=== PATIENT | female | born 1950 | race Caucasian/White ===

== ENCOUNTER 2016-05-30 11:03 | Day surgery (SDC) | payer MEDICARE, OTHER ==
[~2016-05-30] VITALS: Ht 160 cm; Wt 56.2 kg
[~2016-05-30 11:03] MED LIST: 0.9% Sodium Chloride 1,000 ML IV SCH; CALC600T12 PO; IBUP400T22 PO; Sodium Chloride LOK Flush 10 mL Syringe IV PRN; fentaNYL-PF 50 mCg/mL 2 mL Inj IVPUSH PRN
[2016-05-30 11:44] VITALS: BP 128/82; PULSE 81; RESP 16; O2SAT 97
[2016-05-30] MEDS ORDERED: 0.9% Sodium Chloride 1,000 ML IV ONE (13:26)
--- NOTE | 2016-05-30 13:41 | PCM.ENDEGD ---
EGD Date of Service: May 30, 2016 Physician Dragan Gillis MD Pre Procedure Diagnosis: Reflux Post Procedure Dx & Findings: Esophageal ulcer and duodenal polyp Procedure Esophagogastroduodenoscopy PROCEDURE IN DETAIL: After proper sedation, Olympus video endoscope was inserted into patient's mouth and esophagus was successfully intubated. Scope introduced esophagus. Esophagus showed normal shiny whitish mucosa consistent with squamous cell component. Z line was not intact at 35 cm from the incisors. Several ulcers noted largest being 1 cm clean-based ulcer. Biopsies obtained. Scope further advanced to the stomach. Stomach showed normal shiny mucosa with normal appearing rugae folds without any ulcer mass erosion. Cardia fundus body antrum pylorus were all visualized. Retroflexion was done. Stomach was easily inflated and deflatable using air. Scope further events to the distal duodenum. Duodenum revealed normal villous structures with normal appearing folds without any mass ulcer erosion. There was a 1 mm polyp in the second portion of the duodenum which was removed completely using cold forcep. Impression Esophagitis esophageal ulcers status post biopsy Duodenal polyp status post complete removal Recommendation (Stop all NSAIDS Follow-up with Dr. Muhammad Prielainesec 20 mg once a day Repeat EGD in 8 weeks to make sure there is no underlying Sandoval's esophagus Presedation Assessment Risks and Benefits Informed consent was obtained from the patient after all risks and benefits including but not limited to drug reaction, infection, pain, bleeding, perforation, as well as alternatives were discussed. Patient monitoring Continuous pulse oximetry, cardiac monitoring, blood pressure monitoring, IV access, and oxygen at 2L per nasal cannula. Periprocedural Fentanyl: Fentanyl 125mcg Incrementally Midazolam: Midazolam 6mg Incrementally Complications There were no periprocedural complications identified. Post Procedure Plan Post Procedure Recommendations 1. Restrict activities today. 2. Resume normal activities in the morning. 3. Resume medications. 4. GERD behavioral modification: - Avoid fatty, acidic, spicy, large meals - Do not lie down after meals - Do not eat or drink anything for at least 2 1/2 hours before going to bed at night - Discontinue tobacco and alcohol - Decrease or avoid caffeine - Avoid chocolate and mints - Decrease weight - Avoid aspirin and non steroidal anti-inflammatory agents (NSAID) such as Aleve, Advil, Mobic, Naproxen, Ibuprofen, etc 5. Add proton pump inhibitor. Take 30 minutes before 1st meal of the day. 6. Patient informed of normal post procedure side effects as bloating, drowsiness, blood streaking in the stool 7. If gastric biopsy reveal H.pylori, continue with appropriate treatment 8. If small bowel biopsy reveals celiac, continue with appropriate treatment 9. Please don't hesitate to call me with any questions Dragan Gillis MD May 30, 2016 13:41
[2016-05-30 13:43] VITALS: BP 116/74; PULSE 76; RESP 16; O2SAT 98
--- NOTE | 2016-05-30 13:44 | PCM.ENDCOL ---
Colonoscopy Date of Service: May 30, 2016 Physician Dragan Gillis MD Pre Procedure Diagnosis: Hematochezia Post Procedure Dx & Findings: Ulcerative proctitis Procedure Colonoscopy PROCEDURE IN DETAIL: Prep adequate After unremarkable rectal examination the Olympus video colonoscope was inserted patient's anal canal and was advanced to cecum. Landmarks were identified including the ileocecal valve and appendiceal orifice. Scope was withdrawn systematically. Visualized colonic mucosa showed healthy shiny mucosa with normal healthy-appearing vasculature. In the cecum there was a 3 mm polyp which was removed completely using cold snare. Also in the ascending colon there was a 3 mm polyp which was removed completely using cold snare. These were placed in 1 bottle labeled right colon. At 30 cm from the anal verge, there was a patch of inflammation that was consistent with colitis. However starting at 15 cm patient is a continuous redness ulceration edema decreased vascularity into the rectum. Biopsies are obtained. In the rectum retroflexion was done which showed hemorrhoids. Anal canal was inspected carefully on the way out and hemorrhoids noted. Impression Polyps 2 status post complete removal Ulcerative proctitis Hemorrhoids Recommendation Repeat colonoscopy 5 years Biopsy and if it does come back as ulcerative proctitis, start steroid foam enemas for about a month and also start the patient on Lialda once a day. We visualized this area with a flexible sigmoidoscopy in 3 months. Follow up in GI clinic with Dr. Muhammad. Presedation Assessment Risks and Benefits Informed consent was obtained from the patient after all risks and benefits including but not limited to drug reaction, infection, pain, bleeding, perforation, as well as alternatives were discussed. Patient monitoring Continuous pulse oximetry, cardiac monitoring, blood pressure monitoring, IV access, and oxygen at 2L per nasal cannula. Complications There were no periprocedural complications identified. Post Procedure Plan Post Procedure Recommendations 1. Restrict activities today. 2. Resume normal activities in the morning. 3. Resume medications. 4. Patient informed of normal post procedure side effects as bloating, drowsiness, blood streaking in the stool. 5. average risk CRCS. If colon polyps come back as: -Hyperplastic- can repeat colonoscopy in 10 years -Tubular adenoma- repeat colonoscopy in 5 years -Tubulovillous/villous adenoma- repeat colonoscopy in 3 years -If any dysplasia- return to clinic as soon as possible 6. Please don't hesitate to call me with any questions. Dragan Gillis MD May 30, 2016 13:44
[2016-05-30 13:53] VITALS: BP 106/66; PULSE 68; RESP 16; O2SAT 99
[2016-05-30 14:02] VITALS: BP 101/68; PULSE 72; RESP 16; O2SAT 99
--- NOTE | 2016-05-31 16:14 | PATH ---
SURGICAL PATHOLOGY Attending Physician:Dragan Gillis M.D. CASE STATUS: Signed Out PATIENT NAME: RYANNE GARVEY PID: [id number] : 1950 DATE COLLECTED:05/30/2016 22:02 SPECIMEN: 1: Duodenum, Biopsy 2: Esophagus, Biopsy 3: Colon, Biopsy 4: Rectum, Biopsy CLINICAL HISTORY: 1). DUODENUM POLYP X1 2). ESOPHAGUS BIOPSY 3). RIGHT COLON POLYPS X2 4). RECTAL BIOPSY FINAL DIAGNOSIS: 1. Duodenal Polyp, Biopsy: Duodenal mucosa with no diagnostic abnormality. Negative for active inflammation, sprue, dysplasia, and malignancy. 2. Esophagus, Biopsy: Squamocolumnar junctional mucosa with ulcerative esophagitis. Negative for intestinal metaplasia, dysplasia, and malignancy. No viral cytopathic effect identified. Fungal stain pending; results will be reported as an addendum. 3. Right Colon, Polyps, Biopsies: Portions of tubular adenoma x4; negative for high-grade dysplasia. 4. Rectum, Biopsy: Chronic active colitis, moderate. No dysplasia identified. Please see comment. ICD10: K52.9 NOTE: Part 4: Sections demonstrate superficial portions of colorectal mucosa with marked distortion of crypt architecture and an increase in neutrophils, lymphocytes, and plasma cells within the lamina propria. Cryptitis and crypt abscesses are present. Scattered, rare lymphoid aggregates are present. No definite granulomas, regions of dysplasia, or features of neoplasia are identified. GROSS DESCRIPTION: The specimen is received in four formalin filled containers labeled with the patient's name. 1). The specimen is sublabeled "duodenum polyp x1" and consists of a 0.3 x 0.3 x 0.2 CM a portion of tissue which is entirely submitted in cassettes 1A. 2). The specimen is sublabeled "esophagus" and consists of 3 tiny portions of tissue which aggregate to 0.3 x 0.2 x 0.1 CM. The specimen is entirely submitted in cassette 2A. 3). The specimen is sublabeled "right colon polyps x2" and consists of 4 portions of tissue which aggregate to 0.3 x 0.3 x 0.2 CM. The specimen is entirely submitted in cassette 3A. 4). The specimen is sublabeled "rectal" and consists of 4 portions of tissue which aggregate to 0.5 x 0.4 x 0.2 CM. The specimen is entirely submitted in cassette 4A. 05/30/2016 [facility] ICD-9 CODES: CPT CODES: 1: 11992 2: 45394, 86155 3: 87929 4: 02866 PROCEDURE/ADDENDA: Immunohistochemistry SPI Interpretation {Not Entered} Results-Comments Part 2: A PAS stain is negative for fungal organisms. The diagnosis is unchanged. This test was developed and its performance characteristics determined by [facility]. It has not been cleared or approved by the U. S. Food and Drug Administration. The FDA has determined that such clearance or approval is not necessary. This test is used for clinical purposes. It should not be regarded as investigational or for research. Electronically Signed Out Dimitris Rivas MD Electronically Signed Out Melissa Chappell MD [facility] Pathology [facility] [address], [place] [address] Technical component performed at [facility], [facility] [address], [place], [address]
== END 2016-05-30 23:59 | disposition home or self-care (01) ==
LOC: END 11:03
PROVIDERS: ATTEND Internal Medicine
DX: K52.9 Noninfective gastroenteritis and colitis, unspecified (principal); D12.2 Benign neoplasm of ascending colon; K64.9 Unspecified hemorrhoids; K92.1 Melena; K21.9 Gastro-esophageal reflux disease without esophagitis; K31.7 Polyp of stomach and duodenum; K22.10 Ulcer of esophagus without bleeding; E78.5 Hyperlipidemia, unspecified; L57.0 Actinic keratosis
CPT/HCPCS: 43239; 45380; 45385; 88305; 88312; 99153; G0500; J2250; J3010; J7030

== ENCOUNTER 2016-07-31 10:13 | Day surgery (SDC) | payer MEDICARE, OTHER ==
[~2016-07-31] VITALS: Ht 162.6 cm; Wt 56.0 kg
[2016-07-31] MEDS ORDERED: OMEP20CA11 PO (10:48)
[2016-07-31] MEDS ORDERED: MESA800T PO (10:48)
[2016-07-31 10:49] VITALS: BP 137/83; PULSE 68; RESP 16; O2SAT 98
[2016-07-31 11:46] VITALS: BP 118/75; PULSE 63; RESP 16; O2SAT 95
--- NOTE | 2016-07-31 11:47 | PCM.ENDEGD ---
EGD Date of Service: Jul 31, 2016 Physician Dragan Gillis MD Pre Procedure Diagnosis: reflux Post Procedure Dx & Findings: Possible Sandoval's and gastritis Procedure Esophagogastroduodenoscopy PROCEDURE IN DETAIL: After proper sedation, Olympus video endoscope was inserted into patient's mouth and esophagus was successfully intubated. Scope introduced esophagus. Esophagus showed normal shiny whitish mucosa consistent with squamous cell component. Z line was at 35 cm from the incisors. Little less than 2 cm tongue of salmon-colored mucosa. Narrow banding done. No ulcer or mass nodule erosion. Four quadrant biopsies done Q 2 cm. scope advanced to the stomach. Stomach showed normal shiny mucosa with normal appearing rugae folds without any ulcer mass erosion into the antrum. The antrum, atrophy redness edema noted consistent with gastritis. Biopsies obtained. Cardia fundus body antrum pylorus were all visualized. Retroflexion was done. Stomach was easily inflated and deflatable using air. Scope further advanced to the distal duodenum. Duodenum revealed normal villous structures with normal appearing folds without any mass ulcer erosion. 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 Patient monitoring Continuous pulse oximetry, cardiac monitoring, blood pressure monitoring, IV access, and oxygen at 2L per nasal cannula. Periprocedural Fentanyl: Fentanyl 100mcg Incrementally Midazolam: Midazolam 4mg Incrementally Complications There were no periprocedural complications identified. Post Procedure Plan Post Procedure Recommendations 1. Restrict activities today. 2. Resume normal activities in the morning. 3. Resume medications. 4. GERD behavioral modification: - Avoid fatty, acidic, spicy, large meals - Do not lie down after meals - Do not eat or drink anything for at least 2 1/2 hours before going to bed at night - Discontinue tobacco and alcohol - Decrease or avoid caffeine - Avoid chocolate and mints - Decrease weight - Avoid aspirin and non steroidal anti-inflammatory agents (NSAID) such as Aleve, Advil, Mobic, Naproxen, Ibuprofen, etc 5. Add proton pump inhibitor. Take 30 minutes before 1st meal of the day. 6. Patient informed of normal post procedure side effects as bloating, drowsiness, blood streaking in the stool 7. If gastric biopsy reveal H.pylori, continue with appropriate treatment 8. If small bowel biopsy reveals celiac, continue with appropriate treatment 9. Please don't hesitate to call me with any questions Dragan Gillis MD Jul 31, 2016 11:47
[2016-07-31 11:53] VITALS: BP 118/75; PULSE 67; RESP 14; O2SAT 96
[2016-07-31 12:04] VITALS: BP 122/70; PULSE 63; RESP 14; O2SAT 97
--- NOTE | 2016-08-01 10:43 | PATH ---
SURGICAL PATHOLOGY Attending Physician:Dragan Gillis M.D. CASE STATUS: Signed Out PATIENT NAME: RYANNE GARVEY PID: [id number] : 1950 DATE COLLECTED:07/31/2016 21:46 SPECIMEN: 1: Gastric, Biopsy 2: Esophagus, Biopsy CLINICAL HISTORY: 1). GASTRIC BIOPSY 2). DISTAL ESOPHAGUS BIOPSY FINAL DIAGNOSIS: 1.GASTRIC BIOPSY: MILD TO MODERATE CHRONIC GASTRITIS, FOCALLY ACTIVE INVOLVING ANTRAL MUCOSA. Immunohistochemistry for Helicobacter pylori pending, to be reported by addendum. Negative for intestinal metaplasia. Negative for dysplasia and malignancy. 2.DISTAL ESOPHAGUS BIOPSY: SQUAMOUS MUCOSA AND GASTRIC CARDIA-TYPE MUCOSA NEGATIVE FOR SPECIALIZED METAPLASIA OF MEDINA' S-TYPE ESOPHAGUS. Negative for dysplasia and malignancy. Negative for squamous intraepithelial eosinophils. ICD10 K29.70 GROSS DESCRIPTION: The specimen is received in two formalin filled containers labeled with the patient's name. 1). The specimen is sublabeled "gastric" and consists of a 0.3 x 0.3 x 0.3 CM portion of tissue which is entirely submitted in cassette 1A. 2). The specimen is sublabeled "distal esophagus" and consists of 3 portions of tissue which aggregate to 0.3 x 0.3 x 0.2 CM. The specimen is entirely submitted in cassette 2A. 07/31/2016 [facility] MICRO DESCRIPTION: See diagnosis. ICD-9 CODES: CPT CODES: 1: 47884, 11872 2: 55108 PROCEDURE/ADDENDA: Immunohistochemistry SPI Interpretation {Not Entered} Results-Comments Immunohistochemistry results 1.GASTRIC BIOPSY: NEGATIVE FOR HELICOBACTER PYLORI BY IMMUNOHISTOCHEMISTRY. This test was developed and its performance characteristics determined by [facility]. It has not been cleared or approved by the U. S. Food and Drug Administration. The FDA has determined that such clearance or approval is not necessary. This test is used for clinical purposes. It should not be regarded as investigational or for research. Electronically Signed Out Real Reyes MD Electronically Signed Out Real Reyes MD [facility] [place] [address] Technical component performed at [facility], [facility] [address], [address]
== END 2016-07-31 23:59 | disposition home or self-care (01) ==
LOC: END 10:13
PROVIDERS: ATTEND Internal Medicine
DX: K29.50 Unspecified chronic gastritis without bleeding (principal); K21.9 Gastro-esophageal reflux disease without esophagitis; K92.1 Melena
CPT/HCPCS: 43239; 88305; 88342; G0500; J2250; J3010; J7030